=== PATIENT | male | born 1975 | race American Indian/Alaskan Native ===

== ENCOUNTER 2018-09-15 19:56 | Emergency (ER) | payer OTHER ==
[2018-09-15 20:35] LABS: Eosinophils # (Auto) 0.3 K/mm3 (0.0-0.4); Eosinophils % (Auto) 4.7 % (0.0-4.3); Hematocrit 45.4 % (35.5-45.6); Hemoglobin 15.5 gm/dl (11.8-15.2); Lymphocytes # (Auto) 1.8 K/mm3 (1.2-5.4); Lymphocytes % (Auto) 31.5 % (13.4-35.0); Mean Corpuscular HGB Conc 34 % (32-34); Mean Corpuscular Volume 89 fl (84-94); Monocytes # (Auto) 0.5 K/mm3 (0.0-0.8); Monocytes % (Auto) 9.1 % (0.0-7.3); Red Blood Count 5.13 M/mm3 (3.65-5.03); Red Cell Distribution Width 15.3 % (13.2-15.2)
[2018-09-15 20:41] LABS: BUN/Creatinine Ratio 11; Blood Urea Nitrogen 17 mg/dL (9-20); Calcium 9.2 mg/dL (8.4-10.2); Hemolysis Index 23; Platelet Count 190 K/mm3 (140-440)
--- NOTE | 2018-09-15 20:45 | XRay Report ---
PROCEDURE: XR SPINE LUMBOSACRAL 2-3V TECHNIQUE: 3 radiographs of the lumbar spine obtained. HISTORY: bacl pain COMPARISONS: None FINDINGS: No acute fracture or subluxation. Vertebral body heights and disc spaces are maintained. IMPRESSION: No acute fracture or subluxation.. This document is electronically signed by Jolanta Martins MD., September 15 2018 08:43:29 PM ET
[2018-09-15] MEDS ORDERED: MORPHINE IV ONE (20:53)
[2018-09-15] MEDS ORDERED: TORADOL IV ONE (20:53)
[2018-09-15] MEDS ORDERED: CATAPRES PO ONE (20:54)
--- NOTE | 2018-09-15 21:27 | Emergency Department Report ---
ED Back Pain/Injury HPI - General Chief Complaint: High BP Stated Complaint: BACK PAIN Time Seen by Provider: 09/15/18 20:19 Source: EMS Limitations: No Limitations - History of Present Illness Initial Comments: 43-year-old male presents to ED with left lower back pain since yesterday. Patient states it is a sharp pain in the left lower back, nonradiating. Denies fever, nausea, vomiting, dysuria, hematuria. Denies numbness, tingling, weakness or legs. Denies any difficulty or incontinence with urination or bowel movements. Patient denies any injury or heavy lifting. No history of chronic back pain. Pain is worse with movement. Patient has prior history of CVA, whi ch is only deficit with slurred speech, which is now resolved. Blood pressure currently elevated, patient states he has been noncompliant with blood pressure medication for several months since running out of it. MD Complaint: back pain -: Last night Similar Symptoms Previously: No Place: home Radiation: none Severity: moderate Quality: sharp Consistency: intermittent Improves With: immobilization Worsens With: movement Context: unknown Associated Symptoms: denies: weakness, chest pain, numbness, difficulty urinating, incontinence, fever/chills, constipation, abdominal pain, nausea/vomiting, shortness of breath - Related Data Previous Rx's Medication Instructions Recorded Last Taken Type Amoxicillin/K Clav Tab [Augmentin 1 each PO Q12HR #5 tablet 04/03/18 Unknown Rx 875MG TAB] levETIRAcetam [Keppra TAB] 1,000 mg PO BID 30 Days tablet 04/03/18 Unknown Rx Naproxen [Naprosyn] 500 mg PO BID #20 tablet 09/15/18 Unknown Rx amLODIPine [Norvasc] 10 mg PO DAILY #30 tab 09/15/18 Unknown Rx hydroCHLOROthiazide [HCTZ] 25 mg PO QDAY #30 tablet 09/15/18 Unknown Rx methOCARBAMOL [Robaxin TAB] 500 mg PO Q8HR PRN #20 tablet 09/15/18 Unknown Rx traMADol [Ultram] 50 mg PO Q6HR PRN #7 tablet 09/15/18 Unknown Rx Allergies Allergy/AdvReac Type Severity Reaction Status Date / Time No Known Allergies Allergy Unverified 09/15/18 20:03 ED Review of Systems ROS: Stated complaint: BACK PAIN Other details as noted in HPI Comment: All other systems reviewed and negative Constitutional: denies: chills, fever Respiratory: denies: shortness of breath Cardiovascular: denies: chest pain Gastrointestinal: denies: abdominal pain, nausea, vomiting Genitourinary: denies: dysuria, frequency, hematuria Musculoskeletal: back pain Neurological: denies: weakness, numbness, paresthesias ED Past Medical Hx - Past Medical History Hx Hypertension: Yes Hx Congestive Heart Failure: No Hx Diabetes: No Hx Asthma: No Additional medical history: ETOH and cocaine abuse - Surgical History Past Surgical History?: No - Social History Smoking Status: Current Every Day Smoker Substance Use Type: Alcohol, Marijuana - Medications Home Medications: Home Medications Medication Instructions Recorded Confirmed Last Taken Type Amoxicillin/K Clav Tab [Augmentin 1 each PO Q12HR #5 tablet 04/03/18 Unknown Rx 875MG TAB] levETIRAcetam [Keppra TAB] 1,000 mg PO BID 30 Days tablet 04/03/18 Unknown Rx Naproxen [Naprosyn] 500 mg PO BID #20 tablet 09/15/18 Unknown Rx amLODIPine [Norvasc] 10 mg PO DAILY #30 tab 09/15/18 Unknown Rx hydroCHLOROthiazide [HCTZ] 25 mg PO QDAY #30 tablet 09/15/18 Unknown Rx methOCARBAMOL [Robaxin TAB] 500 mg PO Q8HR PRN #20 tablet 09/15/18 Unknown Rx traMADol [Ultram] 50 mg PO Q6HR PRN #7 tablet 09/15/18 Unknown Rx ED Physical Exam - General Limitations: No Limitations General appearance: alert, in no apparent distress - Head Head exam: Present: atraumatic, normocephalic - Eye Eye exam: Present: normal appearance - ENT ENT exam: Present: mucous membranes moist - Neck Neck exam: Present: normal inspection - Respiratory Respiratory exam: Present: normal lung sounds bilaterally. Absent: respiratory distress - Cardiovascular Cardiovascular Exam: Present: regular rate, normal rhythm - GI/Abdominal GI/Abdominal exam: Present: soft. Absent: distended, tenderness - Extremities Exam Extremities exam: Present: normal inspection, full ROM - Back Exam Back exam: Present: CVA tenderness (L), paraspinal tenderness (left lower lumbar) - Neurological Exam Neurological exam: Present: alert, oriented X3, CN II-XII intact. Absent: motor sensory deficit - Psychiatric Psychiatric exam: Present: normal affect, normal mood - Skin Skin exam: Present: warm, dry, intact, normal color. Absent: rash ED Course Vital Signs 09/15/18 09/15/18 09/15/18 19:58 20:23 21:00 Temperature 98.7 F 98.3 F Pulse Rate 70 68 Respiratory 16 18 Rate Blood Pressure 156/111 178/114 Blood Pressure 178/114 [Left] O2 Sat by Pulse 98 100 100 Oximetry 09/15/18 09/15/18 09/15/18 21:11 21:48 22:00 Temperature Pulse Rate 66 Respiratory Rate Blood Pressure 157/109 163/102 167/105 Blood Pressure [Left] O2 Sat by Pulse 100 100 Oximetry 09/15/18 22:30 Temperature Pulse Rate Respiratory Rate Blood Pressure 167/105 Blood Pressure [Left] O2 Sat by Pulse 99 Oximetry ED Medical Decision Making - Lab Data Result diagrams: 09/15/18 20:10 09/15/18 21:09 - Radiology Data Radiology results: report reviewed, image reviewed - Medical Decision Making 43 yo M with left lower back back since yesterday, sharp in nature, nonradiating. No neuro deficits on exam. No symptoms of cauda equina. Patient afebrile, labs normal. Lumbar xray and CT Abd/ Pelvis both negative for any acute pathology. Pt reports he has been noncompliant w/ BP meds for several months. Pt hypertensive, but denies headach, chest pain, SOB, N/V. Clonidine given, BP did improve some. Pain improved with toradol and morphine. Will d/c home w/ refill on BP meds and also pain medication for back pain. Return precautions given. Outpt follow-up advised. - Differential Diagnosis lumbar strain, kidney stone, pyelonephritis Critical care attestation.: If time is entered above; I have spent that time in minutes in the direct care of this critically ill patient, excluding procedure time. ED Disposition Clinical Impression: Acute lumbar myofascial strain Disposition: -01 TO HOME OR SELFCARE Is pt being admited?: No Condition: Stable Instructions: Muscle Strain (ED), Hypertension (ED) Prescriptions: hydroCHLOROthiazide [HCTZ] 25 mg PO QDAY #30 tablet Naproxen [Naprosyn] 500 mg PO BID #20 tablet amLODIPine [Norvasc] 10 mg PO DAILY #30 tab methOCARBAMOL [Robaxin TAB] 500 mg PO Q8HR PRN #20 tablet PRN Reason: Muscle Spasm traMADol [Ultram] 50 mg PO Q6HR PRN #7 tablet PRN Reason: Pain Referrals: RAINE BECERRA MD [Primary Care Provider] - 3-5 Days ASTON LINDA MD [Staff Physician] - 3-5 Days Time of Disposition: 22:51
[2018-09-15 22:13] VITALS: BP 167/105
[2018-09-15 22:31] LABS: Bilirubin,Urine NEG (Negative); Blood,Urine NEG (Negative); Color,Urine Yellow (Yellow); Mucus,Urine FEW /HPF; Protein,Urine <15 mg/dL mg/dL (Negative); Urobilinogen,Urine < 2.0 mg/dL (<2.0); WBC,Urine < 1.0 /HPF (0.0-6.0)
--- NOTE | 2018-09-15 22:44 | Cat Scan Report ---
PROCEDURE: CT ABDOMEN PELVIS WO CON TECHNIQUE: Computerized axial tomography of the abdomen and pelvis was performed without intravenous contrast. This study is performed without intravascular contrast material and its sensitivity for ab dominal and pelvic pathology, including neoplasms, inflammation, abscess, free fluid, thrombosis, art erial dissection and infarction, is reduced compared with a contrast enhanced study. CT DOSE LENGTH PRODUCT: 1756.1 mGycm HISTORY: left flank pain COMPARISONS: None . FINDINGS: Visualized lower thorax: No significant abnormality. Liver: Normal size and attenuation. Spleen: Normal size and attenuation. Gallbladder and biliary system: Normal. Pancreas: Normal. Adrenals: Normal. Kidneys: Normal. No evidence for renal or ureteral calculi are seen. No hydronephrosis is noted GI tract: Normal . The appendix is normal. Lymph nodes and mesentery: Normal. Vasculature: Normal.. Bladder: Normal. Reproductive organs: Normal. Peritoneum: No free fluid. Musculoskeletal structures: No significant abnormality. Other: Small umbilical hernia is present containing only fat. IMPRESSION: No acute intra-abdominal process noted. Small umbilical hernia containing only fat. This document is electronically signed by Catarina Hightower MD., September 15 2018 10:42:33 PM ET
== END 2018-09-15 23:05 | disposition home or self-care (01) ==
LOC: ED 19:56
DX: S39.012A Strain of muscle, fascia and tendon of lower back, initial encounter (principal); I10 Essential (primary) hypertension; F17.200 Nicotine dependence, unspecified, uncomplicated; F12.10 Cannabis abuse, uncomplicated; F14.10 Cocaine abuse, uncomplicated; X50.0XXA Overexertion from strenuous movement or load, initial encounter; Y93.89 Activity, other specified; Y92.89 Other specified places as the place of occurrence of the external cause; Y99.8 Other external cause status
CPT/HCPCS: 36415; 72100; 74176; 80048; 81001; 84132; 85025; 96374; 96375; 99285; J1885; J2270